=== PATIENT | female | born 1990 | race Caucasian/White ===

== ENCOUNTER 2017-02-12 16:10 | Inpatient (IN) | payer BC, OTHER ==
[~2017-02-12] VITALS: Ht 165.1 cm; Wt 77.0 kg
--- OUTSIDE RECORDS SUMMARY | 2017-02-12 16:14 | XMS REPORT | Continuity Of Care Document ---
Author Author [facility] Organization [facility] Address [address] [place] [address] Phone Care Team Providers Care Linen Aide Name Role Phone TONG BUSTAMANTE, SUKH Tam AT RUDOLPH BUSTAMANTE, GARO Sanchez PP Results Lab Results Visit/Account #[id number] (January 25, 2014 10:15am - January 26, 2014 1:50pm) Test Result Reported Date/Time COMPLETE BLOOD COUNT WHITE BLOOD COUNT(4.0-11.0 10E3/UL) 12.7 10E3/UL January 25, 2014 11:14am RED BLOOD COUNT(3.80-5.20 10E6/UL) 3.90 10E6/UL January 25, 2014 11:14am HEMOGLOBIN(12.0-16.0 G/DL) 11.4 G/DL January 25, 2014 11:14am HEMATOCRIT(36.0-48.0 %) 32.8 % January 25, 2014 11:14am MEAN CORPUSCULAR VOLUME(80.0-100.0 FL) 84.1 FL January 25, 2014 11:14am MEAN CORPUSCULAR HEMOGLOBIN(27.0-34.0 PG) 29.2 PG January 25, 2014 11:14am MEAN CORPUSCULAR HGB CONC(33.0-37.0 G/DL) 34.8 G/DL January 25, 2014 11:14am RED CELL DISTRIBUTION WIDTH(11.0-15.0 %) 12.6 % January 25, 2014 11:14am 777-3: PLATELET COUNT(130-400 10E3/UL) 210 10E3/UL January 25, 2014 11:14am MEAN PLATELET VOLUME(7.4-11.0 FL) 9.8 FL January 25, 2014 11:14am NUCLEATED RBCS (AUTO)(0-0 %) 0 % January 25, 2014 11:14am Microbiology Results Visit/Account #[id number] (January 25, 2014 10:15am - January 26, 2014 1:50pm) Procedure Result Specimen #: [id number] MRSA SCREEN FOR INFEC CONTROL Result Instance On January 27, 2014 9:54am Source: NARE Special Result Comments: NO MRSA ISOLATED Bloodbank Results Visit/Account #[id number] (January 25, 2014 10:15am - January 26, 2014 1:50pm) Test Result ABO/RH BLOOD TYPE A POSITIVE on January 25, 2014 12:26pm ANTIBODY SCREEN ANTIBODY SCREEN NEGATIVE on January 25, 2014 12:26pm Allergies and Adverse Reactions Allergies and Adverse Reactions Patient Unit Number: [id number] Agent Type Reaction Severity Status Date NO KNOWN ALLERGIES Drug Allergy Unknown Unknown Active January 25, 2014 Ordered Medications Ordered Medications Visit/Account #[id number] (January 25, 2014 10:15am - January 26, 2014 1:50pm) Medication Dose Route Sig/Schedule Precondition/Indication Comments/ Instructions NDC XYLOCAINE 1% INJ(LIDOCAINE HCL) 500 MG/50 ML INJECTION 0 MG INJ: INJECTION PRN: NEEDED PRN Reason: PERINEAL REPAIR Special Dose Instructions: for physician administration for perineal repair XYLOCAINE 1% INJ (LIDOCAINE HCL): [id number] MOTRIN(IBUPROFEN) 800 MG TAB 800 MG PO: ORAL Q8S: EVERY 8 HOURS Label Comments: Patient may refuse, but encourage use. MOTRIN (IBUPROFEN): [id number] TUCKS(WITCH RICKI/GLYCERIN) 1 EA PAD 1 EA TOP: TOPICALLY PRN: NEEDED PRN Reason: PRN Reason: EPISIOTOMY/HEMMORRHOIDS TUCKS (WITCH RICKI/GLYCERIN): [id number] DERMOPLAST(BENZOCAINE/MENTHOL) 60 GM SPRAY 0 GM TOP: TOPICALLY PRN: NEEDED PRN Reason: PRN Reason: PAIN Special Dose Instructions: 1 SPRAY DERMOPLAST (BENZOCAINE/MENTHOL): [id number] Discharge Medications Discharge Medications Visit/Account #[id number] (January 25, 2014 10:15am - January 26, 2014 1:50pm) Medication Dose Route Sig/Schedule Precondition/Indication Comments/ Instructions NDC MOTRIN(IBUPROFEN) 800 MG TAB 800 MG PO: ORAL PRN: NEEDED Rx Instructions: EVERY 8 HOURS NEEDED FOR PAIN MOTRIN (IBUPROFEN): [id number] NORCO 7.5-325(HYDROCODONE/ACETAMINOPHEN) 1 TAB TABLET 1-2 TAB PO: ORAL PRN: NEEDED Rx Instructions: EVERY 6 HOURS NEEDED FOR PAIN NORCO 7.5-325 (HYDROCODONE/ACETAMINOPHEN): [id number] History Of Encounters Encounters Visit/Account #[id number] (January 25, 2014 10:15am - January 26, 2014 1:50pm) HISTORY AND PHYSICAL January 25, 2014 11:11am Dictated By: MARY PAULINO MD Signed By: MARY PAULINO MD [address] [address] Patient: BRANDON KRISHNAN UNIT/MR#: [id number] : 1990 Age: 23 Sex: F Report#: [id number] Room#: 621-A Location: Dictator: MARY PAULINO MD ([id number]) Attn Phys: SUHK PÉREZ MD Adm Date: 01/25/14 01/25/14 Disch Date: 01/26/14 ~HISTORY AND PHYSICAL~ Signed DICTATED FOR: SUKH PÉREZ MD CHIEF COMPLAINT: "I am having contractions." HISTORY OF PRESENT ILLNESS: This is a 23-year-old, G1, P0 female, who presents to labor and delivery with complaints of contractions. The patient had a last menstrual period of 04/08/2013, giving her an EDC of 01/13/2014. However, she had an approximately 8 week ultrasound giving her an EDC of 01/23/2014, so her true estimated gestational age at this time is 40 weeks and 2 days. The patient reports she has had some vaginal bleeding that started within the last hour. She reports she developed contractions initially at about 0200 today and they were originally 8-10 minutes apart. They are increasing in intensity and are now only 2-3 minutes apart typically. She denies spontaneous rupture of membranes. She reports she is feeling baby move. She is expecting a baby boy. CARE: First exam with Dr. Pérez was at approximately 6 weeks. Her visits were regular. She gained approximately 30 pounds. She reports she had borderline blood pressure elevations without any diagnosis of hypertension. She denies any gestational diabetes or other disorders during . LAB: Blood type is A positive. Antibody screen is negative. Rubella is immune. RPR is nonreactive. HIV is nonreactive. Hep B is negative. Gonococcal and Chlamydia were not tested. GBS is negative. Last Pap was 05/2013. Hemoglobin was 14.1, hematocrit 39.5. One hour glucose tolerance test was 59. Urine culture showed no growth. OBSTETRICAL HISTORY: No prior. PAST MEDICAL HISTORY: None. PAST SURGICAL HISTORY: None. SOCIAL HISTORY: Patient is . She works for the [employer]. She does not smoke. Does not drink. Does not do drugs. Has no history of sexually transmitted infections. Baby's doctor will be Dr. Aviles. For today it will be the county call garbage pick up man. The patient plans to breast feed. FAMILY HISTORY: Negative for hypertension. Positive for diabetes in patient's mother. Positive for Down syndrome in patient's brother. Negative for preeclampsia or bleeding disorders. MEDICATIONS: None, except for vitamins. ALLERGIES: NO KNOWN DRUG ALLERGIES. REVIEW OF SYSTEMS: Positive for headaches last night, otherwise none, spontaneously resolved with Tylenol use. Negative for vision changes, fever, epigastric pain or pruritus or dysuria. Positive for edema in patient's ankles. PHYSICAL EXAMINATION: VITAL SIGNS: Temperature is 98.2, heart rate is in the 70s. Blood pressure is 120s over 50s. O2 sat is 98% on room air. Patient reports her pain level as an 8/10 on the pain scale. heart tones are in the 150s with moderate variability accel's without noted decel's. Contractions occurring every 2-4 minutes. GENERAL: The patient is alert and oriented x3 in moderate distress with contractions. Otherwise, no acute distress. HEENT: Normocephalic, atraumatic. CARDIOVASCULAR: Regular rate and rhythm. LUNGS: Clear to auscultation bilaterally. ABDOMEN: Gravid, soft, nontender between contractions. EXTREMITIES: Dorsalis pedis pulses strong and equal bilaterally. Trace edema to the level of the ankles bilaterally. SKIN: Warm, dry, and intact. NEUROLOGIC: Patellar reflexes 2+ bilaterally. No pedal clonus. PSYCHIATRIC: Normal mood and affect. VAGINAL: The patient has 5-6 cm dilated at 0 station on exam by nursing staff at 10:30 this morning. ADMISSION LABORATORY STUDIES: Pending at the time of this dictation. ASSESSMENT: 1. This is a term intrauterine at 40 weeks and 2 days by 1st trimester ultrasound. 2. Primiparous. PLAN: 1. Continue to monitor per Dr. Pérez's routine active labor admission orders. The patient may have an epidural if she desires, though patient reports she would like to go without. 2. Anticipate delivery of a viable infant via spontaneous vaginal delivery. ESEQUIEL:Truman [id number] D. 01/25/2014 T. 01/25/2014 CC: MD SUKH ALVAREZ MD ~ Dictated By: MARY PAULINO MD (PGY3) 01/25/14 1111 Signed By: MARY PAULINO MD (PGY3) 01/25/14 1516 SUKH PÉREZ MD 01/26/14 0726 History of Procedures Procedure List Visit/Account #[id number] (January 25, 2014 10:15am - January 26, 2014 1:50pm) Code/Procedure Date 75.69: REPAIR OB LACERATION NEC January 25, 2014
[2017-02-12] MEDS ORDERED: LANOLIN OINTMENT 28 GM TUBE TOP PRN (16:15)
[2017-02-12] MEDS ORDERED: HYDROcodone/APAP 7.5 MG/325 MG (NORCO) TABLET PO PRN (16:15)
[2017-02-12] MEDS ORDERED: M-M-R II (MEASLES,MUMPS,RUBELLA) VACCINE SC SCH (16:15)
[2017-02-12] MEDS ORDERED: OXYTOCIN 10 UNIT/ML (PITOCIN) 1 ML VIAL ONE (16:19)
[2017-02-12 16:32] VITALS: BP 137/73
[2017-02-12] MEDS ORDERED: NS FLUSH 3 ML PRN IV (16:35)
[2017-02-12] MEDS ORDERED: LIDOCAINE PF 1% (XYLOCAINE) 2 ML VIAL INJ ONE (16:35)
[2017-02-12] MEDS ORDERED: NS FLUSH 10 ML PRN IV (16:35)
[2017-02-12] MEDS ORDERED: LIDOCAINE/EPINEPHRINE 1% 1:100,000 (XYLOCAINE) 30 ML VIAL INJ ONE ×2 (16:36→19:25)
[2017-02-12 16:45] VITALS: BP 134/70
--- NOTE | 2017-02-12 17:09 | History and Physical (E) ---
History & Physical (OB) Subjective: CC:delivered at home HPI: 26 y/o at 39+0 WGA delivered at home without complication. Mild cramping, then SROM, then delivery within 5 minutes. Healthy viable female born and brought in with mom via EMS. care with Dr. Lares. No complications this , patient reports "some blood pressure issues" but no intervention. Started on amoxicillin 7 days ago for sinusitis. Declines needing Rhogam, and declined flu and Tdap vaccine during . Placenta not yet delivered, no significant bleeding, IV in place. OB Hx: x1 at term 3 years ago, no complications. PMHx:none PSHx:none Allergies: Coded Allergies: No Known Drug Allergies (Unverified , 02/12/17) Objective: BP 137/74, P 69, SpO2 100%. General: Alert and oriented, NAD Chest: CTA Abdomen: fundus firm below U Cardiovasular: RRR, No murmur Extremities: No edema Placenta delivered intact. PP oxytocin given. Small 1st degree laceration repaired with vicryl under 1% lidocaine with epi. Screenings: GBS reported negative by patient. Out of hospital spontaneous vaginal delivery, viable 8' 1" female, without complication. Delivery completed in the hospital, as well as repair as per above. EBL 150cc. We will obtain records from [facility], labs ordered. Problems/Plans: (1) care following vaginal delivery Additional Copies to: End of Report . DEJA MO MD Feb 12, 2017 17:09
[2017-02-12 17:18] VITALS: BP 120/76
[2017-02-12 18:00] VITALS: BP 124/72
[2017-02-12 18:19] LABS: MEAN CORPUSCULAR HEMOGLOBIN 28.7 PG (26.0-34.0); MEAN CORPUSCULAR HGB CONC 33.3 g/dL (31.0-37.0); MEAN PLATELET VOLUME 9.5 FL (6.0-9.5); WHITE BLOOD COUNT 16.74 10^3uL (4.0-11.0)
--- NOTE | 2017-02-12 18:54 | NUR ---
EMS responded to SROM, then delivery at home minutes later. States when EMS arrived, both mom & baby were stable, placenta undelivered. EMS reports during transfer to hospital facility, baby had cyanosis to hands/feet/facial area, was performing blow-by oxygen, heelstick blood sugar 58. Mery Santana RN received into nursery, applied SaO2 monitor, results 95%. Dr. Lewis here to examine infant. After examination, baby brought in to mother's room. Addendum: 02/12/17 at 1859 by Debora Grijalva RN Amended: Links added.
[2017-02-12 19:00] VITALS: BP 123/75
[2017-02-12] MEDS ORDERED: OXYTOCIN INJ 20 UNIT in NS 1000ml 1,000 ML IV PRN (19:21)
[2017-02-12] MEDS ORDERED: OXYTOCIN 10 UNIT/ML (PITOCIN) 1 ML VIAL IV ONE (19:25)
[2017-02-12] MEDS ORDERED: DOCUSATE SODIUM 100 MG (COLACE) CAP PO SCH (21:00)
[2017-02-12] MEDS: IBUPROFEN 600 MG (MOTRIN) TAB PO PRN (21:15)
[2017-02-13] MEDS: IBUPROFEN 600 MG (MOTRIN) TAB PO PRN (07:40)
[2017-02-13 08:15] VITALS: BP 124/75
--- NOTE | 2017-02-13 08:56 | Discharge Summary (E) ---
OB Discharge Summary Admit Date/Time Feb 12, 2017 at 16:19 Discharge Date/Time 02/13/17 Admitting Provider Moo Mo MD Primary Care Provider Kimberli Pérez MD Attending Provider Moo Mo MD Consulting Provider Procedures at home of 8'1" viable female infant without complication. Arrived by EMS and delivery and repair completed in the hospital. Admission Diagnosis care History and Present Illness See History and Physical for complete details. Hospital Course and Treatment Admitted after delivery as per above. Labs checked and stable. course uncomplicated. Discharged home after 24 hours. Discharge Physicial Exam General Alert and oriented, NAD Abdomen Soft, non-distended, fundus firm Extremities No edema Cardiovascular: RRR, No murmur Laboratory Results Past 24 Hrs 02/12/17 18:05: Hematocrit 36.90, Hemoglobin 12.3, Mean Corpuscular Hemoglobin 28.7, Mean Corpuscular Hemoglobin Concent 33.3, Mean Corpuscular Volume 86, Mean Platelet Volume 9.5, Platelet Count 242, Red Blood Count 4.28, Red Cell Distribution Width 12.9, White Blood Count 16.74 Discharge Disposition Home Instructions Nothing PV 6 weeks, no lifting >15 lbs 2 weeks. Call with severe pain, fever, bleeding. Diet regular Follow up Comment F/U with Dr. Lares 6 weeks. Discharge Diagnosis Problems/Plans: (1) care following vaginal delivery Comment Doing well on PPD#1, Hgb yesterday stable at >12. We will discharge home, instructions reviewed. F/U [address] Lares. Copies to: End of Report . MOO MO MD Feb 13, 2017 08:56
[2017-02-13] MEDS ORDERED: HYDR-3702 PO (08:58)
== END 2017-02-13 17:40 | disposition home or self-care (01) | DRG 775 ==
LOC: OB 16:10 → UNDOADMIN 16:10 → OB 16:19
PROVIDERS: ADMIT Obstetrics & Gynecology; ATTEND Obstetrics & Gynecology
PROC: 10E0XZZ Delivery of Products of Conception, External Approach (ICD-10-PCS; principal; 2017-02-12)
PROC: 0HQ9XZZ Repair Perineum Skin, External Approach (ICD-10-PCS; principal; 2017-02-12)
DX: O70.0 First degree perineal laceration during delivery (principal)
CPT/HCPCS: 36415; 85027; 86850; 86900; 86901

== ENCOUNTER → 2017-02-12 | Outpatient (CLI) | payer BC ==
[~2017-02-12] MED LIST: HYDR-3702 PO
== END ==
LOC: EMS 16:15
PROVIDERS: ATTEND Obstetrics & Gynecology
DX: Z39.0 Encounter for care and examination of mother immediately after delivery (principal)